=== PATIENT | female | born 1975 | race Two or more races ===

== ENCOUNTER 2018-11-29 17:21 | Emergency (ER) | payer MEDICAID ==
[~2018-11-29] VITALS: Ht 157.5 cm; Wt 68.0 kg
[2018-11-29 17:35] VITALS: BP 154/100
--- NOTE | 2018-11-29 17:35 | NUR ---
ED Nurse Note: pt walked in to ED due to pain on right ankle for 20 days. pt denies any injury. pt noted swelling and pain. pt came with heel. able to ambulatory with steady gait. AAO x4. respirations even and non-labored noted. will wait for the further order.
[2018-11-29] MEDS ORDERED: Tylenol #3 tab (300mg/30mg) ORAL ONE (17:45)
--- NOTE | 2018-11-29 18:24 | Diagnostic Imaging Report ---
EXAM: XR Right Ankle Complete, 3 or More Views CLINICAL HISTORY: PAIN TECHNIQUE: Frontal, lateral and oblique views of the right ankle. COMPARISON: No relevant prior studies available. FINDINGS: Bones/joints: No acute fracture or malalignment. Small plantar calcaneal osteophyte. Soft tissues: Unremarkable. IMPRESSION: No acute fracture or malalignment.
[2018-11-29] MEDS ORDERED: IBUPROFEN600 MG ORAL (18:45)
--- NOTE | 2018-11-29 18:45 | Emergency Room Report ---
History of Present Illness General Chief Complaint: Pain Source: Patient Present Illness HPI 42-year-old female presents to the emergency department complaining of localized 9 out of 10 severity pain with swelling and tenderness to the medial aspect of the right ankle for over 20 days. Patient denies specific trauma or fall she states that she does begin amount of walking daily especially at work. Denies numbness tingling or loss of sensation or gross motor movements of the extremities, incontinence of bowel or bladder. Denies CP, Palpitations, LOC, AMS , dizziness, Changes in Vision, weakness or a sudden severe headache. Allergies: Coded Allergies: No Known Allergies (Unverified , 11/29/18) Patient History Past Medical History: see triage record Past Surgical History: none Pertinent Family History: none Last Menstrual Period: 11/27/18 Reviewed Nursing Documentation: PMH: Agreed; PSxH: Agreed Nursing Documentation-PMH Past Medical History: No Stated History Review of Systems All Other Systems: negative except mentioned in HPI Physical Exam Vital Signs Date Time Temp Pulse Resp B/P (MAP) Pulse Ox O2 Delivery O2 Flow Rate FiO2 11/29/18 17:35 98.2 89 18 154/100 100 Room Air Sp02 EP Interpretation: reviewed, normal General Appearance: no apparent distress, alert, GCS 15, non-toxic Head: normocephalic, atraumatic Eyes: bilateral eye normal inspection, bilateral eye PERRL ENT: hearing grossly normal, normal voice Neck: full range of motion Respiratory: lungs clear, normal breath sounds, speaking full sentences Cardiovascular #1: regular rate, rhythm, no edema, normal capillary refill Cardiovascular #2: 2+ dorsalis pedis (R) Musculoskeletal: back normal, gait/station normal, normal range of motion, swelling - medial right ankle, other - from , no instability. , tender - medial right ankle Neurologic: alert, oriented x3, responsive, motor strength/tone normal, sensory intact, speech normal, grossly normal Psychiatric: judgement/insight normal Skin: normal color, no rash, warm/dry, well hydrated Medical Decision Making PA Attestation Dr. Grant is my supervising Physician whom patient management has been discussed with. Diagnostic Impression: Primary Impression: Right ankle tendonitis ER Course 42-year-old female presents to the emergency department complaining of localized 9 out of 10 severity pain with swelling and tenderness to the medial aspect of the right ankle for over 20 days. Patient denies specific trauma or fall she states that she does begin amount of walking daily especially at work. Denies numbness tingling or loss of sensation or gross motor movements of the extremities, incontinence of bowel or bladder. Denies CP, Palpitations, LOC, AMS , dizziness, Changes in Vision, weakness or a sudden severe headache. Ddx considered but are not limited to Fracture, dislocation, contusion, Sprain/ Strain/Spasm. Vital signs: are WNL, pt. is afebrile H&PE are most consistent with musculoskeletal injury will perform imaging to r/ o fractures/dislocations. ORDERS: - X-ray Right ankle 3 views - negative for fx, Dislocation, or significant soft tissue injury, per preliminary read in ED, and signed by QUYNH Deleon , my supervising physician has reviewed, and agrees with my interpretation. ED INTERVENTIONS: - T # 3 Bakari wrap applied by career guidance technician. Pt. remains neurovascularly intact. She declines crutches. -I do not identify an emergent condition at this time. With current presentation , pt. is stable for close outpatient follow up and conservative treatment. D/ w pt. to return promptly to ED with worsening or new symptoms.- Pt. verbalizes' understanding and agreement with proposed treatment plan.proposed treatment plan. DISCHARGE: At this time pt. is stable for d/c to home. Will provide printed patient care instructions, and any necessary prescriptions. Care plan and follow up instructions have been discussed with the patient prior to discharge. Other X-Ray Diagnostic Results Other X-Ray Diagnostic Results : X-Ray ordered: right ankle # of Views/Limited Vs Complete: 3 View Indication: Pain EP Interpretation: Yes QUYNH Xray: Interpretation reviewed, by supervising MD, and agrees with findings. Interpretation: no dislocation, no soft tissue swelling, no fractures Impression: No acute disease Electronically Signed by: No Deleon PA-C Last Vital Signs Date Time Temp Pulse Resp B/P (MAP) Pulse Ox O2 Delivery O2 Flow Rate FiO2 11/29/18 17:35 98.2 89 18 154/100 100 Room Air Status: improved Disposition: HOME, SELF-CARE Condition: Stable Scripts Ibuprofen* (MOTRIN*) 600 Mg Tablet 600 MG ORAL THREE TIMES A DAY, #30 TAB 0 Refills Prov: No Deleon 11/29/18 Patient Instructions: Ankle Sprain, [id number] Additional Instructions: Take medications as directed. Follow up with an PREBOARDER in 3-5 days, even if your symptoms have resolved. If symptoms persist MRI may be required at the discretion of your PCP or Ortho Specialist. --Please review list of primary care clinics, if you do not already have a primary care provider who can give you an Orthopedic Referral. Return sooner to ED if new symptoms occur, or current symptoms become worse. Do not drink alcohol, drive, or operate heavy machinery while taking [place] as this may cause drowsiness. - Please note that this Emergency Department Report was dictated using [employer] dry cell and battery technology software, occasionally this can lead to erroneous entry secondary to interpretation by the dictation equipment. No Deleon Nov 29, 2018 18:45
[2018-11-29 19:07] VITALS: BP 144/99
--- NOTE | 2018-11-29 19:08 | NUR ---
ER DISCHARGE NOTE: Patient is cleared to be discharged per ERMD, pt is aox4, on room air, with stable vital signs. pt was given dc and prescription instructions, pt was able to verbalize understanding, pt id band removed. pt is able to ambulate with steady gait. pt took all belongings.
== END 2018-11-29 19:08 | disposition home or self-care (01) ==
LOC: EMR 18:05
DX: M77.51 Other enthesopathy of right foot and ankle (principal)
CPT/HCPCS: 99283